=== PATIENT | male | born 1995 | race Asian ===

== ENCOUNTER → 2018-12-21 12:53 | Outpatient (CLI) | payer OTHER, MEDICAID, SELFPAY ==
[2018-11-06 13:45] VITALS: BMI 19.5
--- NOTE | 2018-12-21 12:59 | ECHOCS_ITS ---
Reason For Study: Arrhythmia Procedure This was a 2D Doppler, Color Flow transthoracic echocardiogram. Contrast injection was performed. Exam performed in department. Left Ventricle Normal size and thickness. The estimated ejection fraction is 65 %. Normal diastology for age. No regional wall motion abnormalities noted. Right Ventricle Mildly dilated right ventricle. Normal systolic function. Atria Normal left atrium. Normal right atrium. Normal atrial septum. Mitral Valve The mitral valve is structurally normal. No prolapse or stenosis seen. Tricuspid Valve Normal tricuspid valve. Trivial tricuspid valve insufficiency. Unable to estimate RV systolic pressure due to insufficient tricuspid regurgitant envelope. Aortic Valve Normal aortic valve. Trisinus/trileaflet aortic valve. Trivial aortic valve insufficiency. Pulmonic Valve Normal pulmonic valve. Trivial pulmonic valve insufficiency. Great Vessels Normal aortic root. Normal arch. Normal inferior vena cava. Inferior vena cava collapse with sniff. Pericardium/Pleural No pericardial effusion. Medication Diluted definity 3ml given slow IV push to enhance endocardial definition. MMode/2D Measurements & Calculations LVIDd: 4.6 cm IVSd: 0.84 cm Ao root diam: 2.2 cm LVIDs: 3.0 cm LVPWd: 0.77 cm RVDd: 3.7 cm FS: 35.1 % LAV(MOD-bp): 22.7 ml LVAd ap4: 25.3 cm2 SV(MOD-sp4): 46.7 ml LAV(MOD-bp) Indexed: 13.1 ml/m2 EDV(MOD-sp4): 67.9 ml LAV(MOD-sp2): 33.5 ml EDV(sp4-el): 70.5 ml LAV(MOD-sp4): 14.8 ml LVAs ap4: 12.8 cm2 ESV(MOD-sp4): 21.2 ml ESV(sp4-el): 20.6 ml EF(MOD-sp4): 68.8 % EF(sp4-el): 70.8 % SV(sp4-el): 49.9 ml LA A4 area: 8.8 cm2 LA dimension(2D): 2.2 cm RA A4 area: 11.3 cm2 Doppler Measurements & Calculations MV E max jesus: 69.2 cm/sec Lat Peak E' Jesus: 11.2 cm/sec Med Peak E' Jesus: 14.7 cm/sec MV A max jesus: 49.8 cm/sec E/E' lat: 6.2 E/E' med: 4.7 MV E/A: 1.4 Ao V2 max: 131.6 cm/sec LV V1 max: 113.2 cm/sec PA V2 max: 99.2 cm/sec Ao max P.9 mmHg LV V1 max P.1 mmHg Ao V2 mean: 91.3 cm/sec Ao mean P.7 mmHg Ao V2 VTI: 26.6 cm Interpretation Summary The estimated ejection fraction is 65 %. Normal diastology for age. Mildly dilated right ventricle. Trivial tricuspid valve insufficiency. Unable to estimate RV systolic pressure due to insufficient tricuspid regurgitant envelope. Trivial aortic valve insufficiency. The study was technically difficult. Contrast injection was performed. There is no comparison study available. Ordering Physician: Ravindra Billingsley Referring Physician: Rex Segura Performed By: Nicolette Talbot RDCS, YAMILET
== END ==
PROVIDERS: Family Provider Family Medicine; PCP Family Medicine; Referring Provider Internal Medicine Cardiovascular Disease; Visit Provider Internal Medicine Cardiovascular Disease
DX: R94.31 Abnormal electrocardiogram [ECG] [EKG] (principal); Z87.898 Personal history of other specified conditions
CPT/HCPCS: 93306; Q9957; A4216; C8929

== ENCOUNTER → 2018-12-21 12:59 | Outpatient (REF) | payer OTHER, MEDICAID, SELFPAY ==
[2018-11-06 13:45] VITALS: BMI 19.5
== END ==
LOC: CVS 12:59
PROVIDERS: Family Provider Family Medicine; PCP Family Medicine; Referring Provider Internal Medicine Cardiovascular Disease; Visit Provider Internal Medicine Cardiovascular Disease
DX: R94.31 Abnormal electrocardiogram [ECG] [EKG] (principal); Z87.898 Personal history of other specified conditions; R55 Syncope and collapse
CPT/HCPCS: 93270

== ENCOUNTER → 2018-12-22 10:42 | Outpatient (CLI) | payer OTHER, MEDICAID, SELFPAY ==
[2018-11-06 13:45] VITALS: BMI 19.5
--- NOTE | 2018-12-22 10:43 | STEWCON_ITS ---
Reason For Study: Arrhythmia Stress Results Protocol: Jerome Protocol Maximum Predicted HR: 197 bpm Target HR: 167 bpm % Maximum Predicted HR: 91 % DurationHeart Rate Stage (mm:ss) (bpm) BP Comment Baseline 86 102/64No Chest Pain; 3 ML Diluted Definity Given Jerome Protocol Stage I 3:00 98 108/60No Chest Pain Jerome Protocol Stage II 3:00 110 110/50No Chest Pain Jerome Protocol Stage III 3:00 125 118/54No Chest Pain Jerome Protocol Stage IV 3:00 169 130/52No Chest Pain Jerome Protocol Stage V 1:00 179 / No Chest Pain; Mild Dyspnea Recovery 104 102/60No Chest Pain Stress Duration: 13:00 mm:ss Maximum Stress HR: 179 bpm METS: 17 Baseline Echocardiogram Findings The estimated ejection fraction is 65 %. Stress Echo Wall motion Data Resting WM Intermediate WM Stress WM Resting Wall Motion Wall Motion Stress No regional wall motion No regional wall motion abnormalities noted. abnormalities noted. EKG Data The baseline ECG displays normal sinus rhythm. The patient exercised according to the regular Jerome protocol for a total duration of 13:00. The maximum heart rate attained was 181 beats per minute. This was 91% of maximum predicted heart rate. The patient exercised into stage 5 of the Jerome protocol. During stress, there were no ST or T wave changes noted to suggest ischemia. No clinical angina was noted. Interpretation Summary The estimated ejection fraction is 65 %. Normal, adequate, treadmill echocardiogram. Negative for ischemia by EKG and echocardiographic criteria. No anginal symptoms noted. No arrhythmias noted. Final LVEF is 75%. Patient taught procedure well. No complications. Test terminated due to target heart rate achieved. Decreased sensitivity due to poor echo windows requiring Definity agent. The study was technically difficult. Contrast injection was performed. Ordering Physician: Ravindra Billingsley Referring Physician: Rex Segura Performed By: Rand JAVON, LISA, Magali and Student
== END ==
PROVIDERS: Family Provider Family Medicine; PCP Family Medicine; Referring Provider Internal Medicine Cardiovascular Disease; Visit Provider Internal Medicine Cardiovascular Disease
DX: I45.10 Unspecified right bundle-branch block (principal); Z87.898 Personal history of other specified conditions; R94.31 Abnormal electrocardiogram [ECG] [EKG]
CPT/HCPCS: 93017; 93350; Q9957; A4216; C8928

== ENCOUNTER 2020-03-05 14:42 | Emergency (ER) | payer OTHER, MEDICAID, SELFPAY ==
[2018-11-06 13:45] VITALS: BMI 19.5
[2020-03-05 14:45] VITALS: BP 100/60; PULSE 61; RESP 16; TEMP 36.7; O2SAT 100; BMI 21.0
--- NOTE | 2020-03-05 14:56 | RAD_ITS ---
STUDY: X-RAY CHEST REASON FOR EXAM: Male, 24 years old. Syncope TECHNIQUE: Frontal view of the chest COMPARISON: None. FINDINGS: The lungs are clear. There are no pleural effusions. There is no pneumothorax. The heart is normal in size. The visualized osseous structures are within normal limits. RAD/Chest 1 View (Portable) IMPRESSION: No acute thoracic pathology. Electronically Signed: Александр Dale, at 15:16 EST Tel , Service support ,
--- NOTE | 2020-03-05 15:13 | ED.VIS.GEN ---
History of Present Illness Chief Complaint: Syncope Informant: Patient Onset: Today Narrative: 24-year-old male states that he was standing in line for approximately 5 minutes at the local [employer] when he began to feel lightheaded. But 2 minutes later he sustained a syncopal episode. He states that he must of fallen correctly because he did not injure himself. He denies any palpitations or chest pain prior to the event. No abdominal symptoms. He tells me he has a history of syncope in the past. He is followed up with cardiology and no an obvious cause was found. He has a history of abnormal EKG with J-point elevation anteriorly. At the current time the patient states he is feeling back to his normal self. - Past Medical History (1) ADHD Status: Chronic (2) Abnormal EKG Status: Chronic (3) History of syncope Status: Chronic (4) Incomplete right bundle branch block Status: Chronic Past Medical History - Allergies and Home Meds Allergies/Adverse Reactions: Allergies No Known Allergies Allergy (Verified 10/29/18 15:51) Primary Care Physician: Rex Segura MD [Primary Care Provider] - Surgical History: noncontributory Smoking Status: Never smoker Drugs: None - No current activity Review of Systems General: Denies: Chills, Fever, Sweats Eyes: Denies: Visual changes - bilaterally, Diplopia ENT: Denies: Rhinorrhea, Sore throat Cardiovascular: Reports: - - Syncope. Denies: Chest pain, Palpitations, Heart racing Respiratory: Denies: Dyspnea, Cough, Dyspnea on exertion Gastrointestinal: Denies: Abdominal pain, Nausea, Vomiting, Diarrhea, Melena, Hematochezia Genitourinary: Denies: Dysuria, Hematuria, Frequency Musculoskeletal: Denies: Back pain, Extremity Pain Skin: Denies: Rash, Wounds Neurological: Denies: Headache, Weakness, Numbness Physical Exam Vital Signs/Narrative: Vital Signs Temp Pulse Resp BP Pulse Ox 03/05/20 14:45 98.1 F 61 16 100/60 100 Inital Vital Signs reviewed: Yes General: Well nourished, Well developed, No Acute Distress Head: Normocephalic, Atraumatic Eyes: Perrl, EOMI ENT: Moist mucous membranes, No rhinorrhea Neck: Supple, Nontender Cardiovascular: Regular rate, Regular rhythm, No murmurs Respiratory: No distress, CTA bilaterally, Chest nontender Abdomen: Soft, Nontender, Nondistended, Normal bowel sounds Back: Nontender, Normal Inspection Extremities: Nontender, No edema Skin: Normal color, No rash Neurological: Alert, Oriented x3, Cranial nerves II-XII grossly intact, Normal Strength, Normal Sensation Psychological: Normal affect, Normal Mood Diagnostic/Tx/Re-eval - EKG Initial EKG Interpretation: Sinus Rhythm - EKG demonstrates a normal sinus rhythm at a rate of 66. Right bundle branch block and J-point elevation anteriorly noted. QTc 421. AK interval 138 with no evidence of delta wave. - Medical Decision Making Patient is EKG appears grossly unchanged from prior EKG dated 22 Jul 2012. Patient has had no events on the monitor. My interpretation of the single view portable chest x-ray is no acute process. Patient will be discharged home. Follow-up with primary care return if worsening or concerns ED Disposition - Plan for ED Patient: Disposition: Home or Assisted Living Diagnosis: Syncope and collapse Instructions: ED Fainting, Uncertain Cause Referrals: Rex Segura MD [Primary Care Provider] - As soon as possible Additional Instructions: He may follow-up with her primary care physician or if you still see cardiology may follow-up with them.
[2020-03-05 15:36] VITALS: BP 109/52; PULSE 72; RESP 22; O2SAT 99
== END 2020-03-05 16:07 | disposition home or self-care (01) ==
LOC: ED 15:19
PROVIDERS: Emergency Provider Emergency Medicine; PCP Family Medicine
DX: R55 Syncope and collapse (principal); F90.9 Attention-deficit hyperactivity disorder, unspecified type
CPT/HCPCS: 71045; 93005; 99284

== ENCOUNTER → 2021-02-12 11:45 | Outpatient (CLI) | payer OTHER, MEDICAID, SELFPAY ==
[2021-02-12 15:44] LABS: 24HR. Urine Creatinine 1.61 g/24 HR (0.90-2.10)
== END ==
PROVIDERS: PCP Family Medicine; Visit Provider Family Medicine
DX: R23.2 Flushing (principal)
CPT/HCPCS: 81050; 82570

== ENCOUNTER → 2021-03-06 16:26 | Outpatient (CLI) | payer OTHER, MEDICAID, SELFPAY ==
[2021-03-06 17:36] LABS: Absolute Lymphocyte Count 1.51 X10^3/uL (0.83-4.51); Absolute Neutrophil Count 3.8 X10^3/uL (2.0-7.7); Basophil# 0.08 X10^3/uL; Basophil% 1.4 % (0-1); Eosinophil# 0.02 X10^3/uL; Eosinophils% 0.3 % (0-5); Hematocrit 46.9 % (40-54); Hemoglobin 15.8 g/dL (13.0-16.5); Lymphocyte # 1.51 X10^3/ul (0.83-4.51); Lymphocyte % 26.2 % (19-41); Mean Corp Hgb Conc 33.7 g/dL (32-36); Mean Corpuscular Hgb 29.1 pg (27.0-32.0); Mean Corpuscular Volume 86.4 fL (80-94); Mean Platelet Vol. 8.8 fl (6.2-12.0); Monocyte# 0.36 X10^3/uL; Monocyte% 6.2 % (0-10); NRBC Flagged by Analyzer 0 % (0-5); Neutrophil # 3.79 X10^3/uL (2.7-7.7); Neutrophil % 65.7 % (47-70); Platelet Count 266 K/mm3 (150-450); RBC Distribution Width CV 12.8 % (11.6-14.6); RBC Distribution Width SD 39.9 fl (35.1-43.9); Red Blood Count 5.43 M/mm3 (4.6-6.2); White Blood Count 5.8 K/mm3 (4.4-11.0)
[2021-03-06 18:01] LABS: ALB/GLOB Ratio 1.1 RATIO (0.9-2.4); AST(SGOT) 24 U/L (15-37); Alanine Aminotransfer ALT/SGPT 38 U/L (16-61); Albumin, Serum 4.1 g/dL (3.2-5.0); Alkaline Phosphatase 72 U/L (45-117); Anion Gap 8 (5-15); BUN 13 mg/dL (7-18); Calcium,Total 9.2 mg/dL (8.5-10.1); Chloride 106 mmol/L (98-107); EST Glomerular Filtration Rate 96 mL/min (>60); Est Glom Filt Rate - Afr Amer 117 mL/min (>60); Globulin 3.6 g/dL (2.2-4.2); Glucose 142 mg/dL (74-106); Protein, Total 7.7 g/dL (6.4-8.2); Sodium Level 139 mmol/L (136-145)
[2021-03-08 16:09] LABS: Endomysial Antibody IgA Negative (Negative)
[2021-03-09 09:18] LABS: Deamidated Gliadin IgA 15 units (0-19); Deamidated Gliadin IgG 4 units (0-19); Immunoglobulin A 207 mg/dL (90-386); t-Transglutaminase IgA <2 U/mL (0-3)
[2021-03-09 09:43] LABS: ANTINUCLEAR ANTIBODIES DIRECT Negative (Negative)
== END ==
PROVIDERS: PCP Family Medicine; Referring Provider Family Medicine; Visit Provider Family Medicine
DX: R19.7 Diarrhea, unspecified (principal)
CPT/HCPCS: 36415; 80053; 82784; 83516; 85025; 86038; 86255

== ENCOUNTER → 2021-03-07 | Outpatient (CLI) | payer OTHER, MEDICAID, SELFPAY | END | disposition home or self-care (01) | PROVIDERS: PCP Family Medicine; Referring Provider Family Medicine; Visit Provider Family Medicine | DX: R19.7 Diarrhea, unspecified (principal) | CPT/HCPCS: 87177; 87209; 87506 ==